=== PATIENT | female | born 1955 | race Asian ===

== ENCOUNTER 2020-05-27 08:10 | Day surgery (SDC) | payer OTHER, SELFPAY ==
[~2020-05-27] VITALS: Ht 156 cm; Wt 63.5 kg
[2020-05-27] MEDS ORDERED: LIDOCAINE 2% 100 MG/5 ML UJET TP ONE ×2 (10:08→16:00)
[2020-05-27] MEDS ORDERED: fentaNYL citrate 0.05 MG/ML VIAL ONE (10:08)
[2020-05-27] MEDS ORDERED: fentaNYL citrate 0.05 MG/ML VIAL IVP ONE (15:55)
== END 2020-05-27 11:20 | disposition home or self-care (01) ==
LOC: MMU 08:10 → MDS 08:10
PROVIDERS: ATTEND Internal Medicine Gastroenterology
DX: Z12.11 Encounter for screening for malignant neoplasm of colon (principal); Z90.710 Acquired absence of both cervix and uterus; Z20.828 Contact with and (suspected) exposure to other viral communicable diseases
CPT/HCPCS: 45378; J3010; U0003